=== PATIENT | male | born 2005 | race Caucasian/White ===

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

== ENCOUNTER 2025-02-15 14:24 | Emergency (ER) | payer SELFPAY ==
[2025-02-15 14:43] VITALS: BP 120/78; PULSE 71; TEMP 36.7; O2SAT 99
--- NOTE | 2025-02-15 14:52 | W.ED.EXTPRO ---
HPI - Extremity Problem General: Chief complaint: Extremity Problem,Nontraumatic Stated complaint: knee pain Time Seen by Provider: 02/15/25 14:31 Source: patient Mode of arrival: ambulatory Limitations: no limitations History of Present Illness: Patient is a 19-year-old male who presents to ED today with complaint of bilateral anterior knee pain starting several days ago. Patient starting a new exercise regimen and is walking 3 miles and running 2 miles daily. This is normally being completed on pavement. Patient is currently wearing [employer] shoes which he states he is running in. They admittedly do not have very good support. MD Complaint: joint pain Onset (ago): day(s) Pain Consistency: constant Location: left, right and knee Radiation: none Relieving factors: immobilization Exacerbating factors: weight bearing, walking and other (running) Associated symptoms: Reports no associated symptoms Related Data Previous Rx's ?Medication ?Instructions ?Recorded ProAir HFA 90 mcg/actuation See Rx Instructions .Route 04/10/22 aerosol inhaler (albuterol sulfate) .COMPLEX #9 grams codeine 10 mg-guaifenesin 100 mg/5 7.5 ml PO Q6H PRN cough #118 mL 10/14/23 mL oral liquid ketorolac 10 mg tablet 10 mg PO TID PRN pain #10 tabs 10/14/23 Allergies Allergy/AdvReac Type Severity Reaction Status Date / Time No Known Allergies Allergy Verified 02/15/25 14:47 Review of Systems Musc: Reports: joint pain; Denies: extremity pain, extremity swelling, joint swelling, joint redness, joint warmth, joint stiffness, limited range of motion or muscle weakness Neuro: Denies: numbness in extremities, sensory changes or difficulty walking PFS ED PFSH: Social History Smoking and tobacco/nicotine status: never used tobacco/nicotine Physical Exam Const: COMMON NORMALS: no acute distress, patient oriented x3, no limitations, alert and well nourished GENERAL APPEARANCE: cooperative NUTRITIONAL APPEARANCE: obese Extremity: RIGHT LOWER EXTREMITY: Yes knee joint LEFT LOWER EXTREMITY: Yes knee joint OTHER: mild anterior bilateral knee pain with palpation; no edema, no redness Neuro: COMMON NORMALS: patient oriented x3, moves all extremities, no focal motor deficits, no sensory deficits noted and gait normal SENSORIUM/ORIENTATION: Yes alert Course Vital Signs: Vital signs: Vital Signs Temperature 98.1 F 02/15/25 14:43 Pulse Rate 71 02/15/25 14:43 Blood Pressure 120/78 02/15/25 14:43 Pulse Oximetry 99 02/15/25 14:43 Oxygen Delivery Me thod Room Air 02/15/25 14:43 MDM - Extremity (Nontraumatic) Medical Decision Making Given recent history this is probably due to repeated concrete impaction with poor supportive shoe wear. DDx Pippa-Schlatter, patellofemoral syndrome, morrell splints, etc. Discussed better shoe wear-he does have higher arches so discussed [employer] make good supportive running shoes. He could also try insoles if he cannot afford a new pair. If he is really motivated he can find a running store and do a foot/gait analysis to see if he supinates/pronates when he runs and they can make footwear recommendations based on this. Discussed less impact by walking/running on softer surfaces like grass or rubber track. Ice/elevation/NSAIDS. No radiology studies performed this visit Discharge Plan Discharge Patient Disposition: Home Clinical Impression: Acute bilateral knee pain Condition: Stable Prescriptions: No Action albuterol sulfate [ProAir HFA] 90 mcg/actuation HFA aerosol inhaler See Rx Instructions .ROUTE .COMPLEX Qty: 9 2RF Dose Instruction: INHALE 2 PUFFS BY MOUTH EVERY 6 HOURS NEEDED FOR SHORTNESS OF BREATH OR FOR WHEEZING Rx Instructions: INHALE 2 PUFFS BY MOUTH EVERY 6 HOURS NEEDED FOR SHORTNESS OF BREATH OR FOR WHEEZING ketorolac 10 mg tablet 10 mg PO TID PRN (Reason: pain) Qty: 10 0RF codeine-guaifenesin 10-100 mg/5 mL liquid 7.5 ml PO Q6H PRN (Reason: cough) Qty: 118 0RF Discharge Orders: Discharge ED (Routine); Ordered 02/15/25 Ordered By: Emily Martinez Referrals: Maru Wright NP [Primary Care Provider] - Activity Restrictions/Additional Instructions: As we discussed, you need to look into better footwear for running. We discussed running on softer surfaces over the next several weeks including grass and avoiding pavement. You need to ice the knees for 20 to 30 minutes 3 times daily and begin taking an anti-inflammatory such as ibuprofen every 6-8 hours. Print Language: Central African Coding Level of Care Code ED Field Technical Assistant for Johnathan Gonzales
== END 2025-02-15 15:12 | disposition home or self-care (01) ==
PROVIDERS: Emergency Provider Physician Assistant; PCP Nurse Practitioner
DX: M25.561 Pain in right knee (principal); M25.562 Pain in left knee
CPT/HCPCS: 99282

== ENCOUNTER 2025-05-12 18:40 | Emergency (ER) | payer SELFPAY ==
[2025-05-12 18:44] VITALS: BP 142/88; PULSE 56; RESP 16; TEMP 36.4; O2SAT 100
--- NOTE | 2025-05-12 19:34 | XRR_ITS ---
PROCEDURE INFORMATION: Exam: XR Right Elbow Exam date and time: 05/12/2025 7:37 PM Age: 19 years old Clinical indication: Pain; Elbow; Right; Additional info: Fall, decreased rom TECHNIQUE: Imaging protocol: Radiologic exam of the right elbow. Views: 3 or more views. COMPARISON: No relevant prior studies available. FINDINGS: Bones/joints: Chronic appearing architectural distortion of the right radial head and capitellum and proximal ulna and trochlea. Well corticated bony fragment projecting just anterior to the distal humerus on the lateral view. Irregular linear lucency projecting through the articular aspect of the proximal ulna on the lateral view which may represent a nondisplaced fracture. Soft tissues: Normal. XR/XR elbow RT min 3V* [id number] IMPRESSION: 1. Irregular linear lucency projecting through the articular aspect of the proximal ulna on the lateral view which may represent a nondisplaced fracture. 2. Chronic appearing architectural distortion of the right radial head and capitellum and proximal ulna and trochlea.
[2025-05-12] MEDS: HYDROcodone-acetaminophen 5-325 mg Tablet 1 TAB PO ×2 (20:10→21:34)
[2025-05-12] MEDS: ondansetron hcl ODT 4 mg Tab PO (20:11)
[2025-05-12] MEDS: ketorolac 60 mg/2 mL INJ IM (20:11)
--- NOTE | 2025-05-12 21:20 | W.ED.EXTPRO ---
HPI - Extremity Problem General: Chief complaint: Extremity Injury, Upper Stated complaint: Right arm injury Time Seen by Provider: 05/12/25 19:12 Source: patient Mode of arrival: ambulatory Limitations: no limitations History of Present Illness: 19yo male presents with mother for evaluation of right elbow pain following a fall that occurred when his mother's dog ran into him. Patient reports that he was on the second step when the dog ran out and knocked him over, causing him to fall to the ground. Patient states that he did put his right arm behind him in order to catch himself, and felt significant pain in the elbow. He denies any other injury or concern at this time. Patient is right-hand dominant. Patient denies any other concerns at this time. Associated symptoms: Deny chest pain or fever(s) Related Data Previous Rx's ?Medication ?Instructions ?Recorded ProAir HFA 90 mcg/actuation See Rx Instructions .Route 04/10/22 aerosol inhaler (albuterol sulfate) .COMPLEX #9 grams hydrocodone 5 mg-acetaminophen 325 1 tab PO Q6H PRN pain #20 tabs 05/12/25 mg tablet ondansetron 4 mg disintegrating 4 mg PO Q8H PRN nausea and 05/12/25 tablet vomiting #20 tabs Allergies Allergy/AdvReac Type Severity Reaction Status Date / Time No Known Allergies Allergy Verified 05/12/25 18:47 Review of Systems Const: Denies: fever(s), chills or body aches Card: Denies: chest pain Resp: Denies: dyspnea GI: Denies: vomiting Musc: Reports: extremity pain (Right elbow) and extremity swelling (Right elbow) [facility] ED PFSH: Social History Smoking and tobacco/nicotine status: never used tobacco/nicotine Physical Exam Const: COMMON NORMALS: no acute distress, patient oriented x3 and alert GENERAL APPEARANCE: cooperative ORIENTATION/CONSCIOUSNESS: Yes awake OTHER: Patient is ambulatory [facility] with no difficulty. He is interactive with exam appropriately. He is in no acute distress. Mother is at bedside HENMT: COMMON NORMALS: normocephalic and atraumatic HEAD & SCALP: normocephalic and atraumatic Neck/C-Spine: COMMON NORMALS: full ROM Chest: CHEST: Yes Symmetrical chest wall rise Resp: COMMON NORMALS: normal respiratory effort EFFORT & INSPECTION: Yes able to speak in complete sentences Extremity: RIGHT UPPER EXTREMITY: Yes elbow joint (Swelling noted) Right elbow: Yes inspection and Yes palpation (TTP to olecranon, medial and lateral epicondyles) OTHER: No tenderness to the right shoulder or right wrist. Full range of motion of the right digits Neuro: COMMON NORMALS: patient oriented x3 SENSORIUM/ORIENTATION: Yes alert Psych: COMMON NORMALS: cooperative Course Vital Signs: Vital signs: Vital Signs Temperature 97.5 F L 05/12/25 18:44 Pulse Rate 67 05/12/25 21:54 Respiratory Rate 16 05/12/25 18:44 Blood Pressure 98/67 05/12/25 21:54 Pulse Oximetry 97 05/12/25 21:54 MDM - Extremity (Nontraumatic) Medical Decision Making 19yo male presents with mother for evaluation of right elbow pain following a fall that occurred when his mother's dog ran into him. Patient reports that he was on the second step when the dog ran out and knocked him over, causing him to fall to the ground. Patient states that he did put his right arm behind him in order to catch himself, and felt significant pain in the elbow. He denies any other injury or concern at this time. Patient is right-hand dominant. Patient denies any other concerns at this time. Patient is nontoxic in appearance. Vital signs are stable. Fracture noted at the proximal ulna, sail sign noted. Radiology review is pending. Patient was placed in a posterior long-arm splint with a sling while awaiting radiology review. Radiology does note the irregular linear lucency which may represent a nondisplaced fracture. A referral was placed to orthopedics for follow-up. Short course of pain medication was sent to patient's pharmacy, sedation precautions provided. Recommend he follow-up with orthopedics as soon as possible for definitive care. Return precautions provided. Patient states understanding and has no further questions or concerns at this time. Medical Records I reviewed the patient's medical records. Lab Data Radiology Impressions Elbow X-Ray 05/12/25 19:34 IMPRESSION: 1. Irregular linear lucency projecting through the articular aspect of the proximal ulna on the lateral view which may represent a nondisplaced fracture. 2. Chronic appearing architectural distortion of the right radial head and capitellum and proximal ulna and trochlea. All radiology interpretation(s) finalized by discharge Discharge Plan Discharge Patient Disposition: Home Clinical Impression: Elbow fracture, right Qualifiers: Encounter type: initial encounter Fracture type: closed Qualified Code(s): S42.401A - Unspecified fracture of lower end of right humerus, initial encounter for closed fracture Condition: Stable Prescriptions: New hydrocodone-acetaminophen 5-325 mg tablet 1 tab PO Q6H PRN (Reason: pain) Qty: 20 0RF ondansetron 4 mg tablet,disintegrating 4 mg PO Q8H PRN (Reason: nausea and vomiting) Qty: 20 0RF Discontinued ketorolac 10 mg tablet 10 mg PO TID PRN (Reason: pain) Qty: 10 0RF codeine-guaifenesin 10-100 mg/5 mL liquid 7.5 ml PO Q6H PRN (Reason: cough) Qty: 118 0RF No Action albuterol sulfate [ProAir HFA] 90 mcg/actuation HFA aerosol inhaler See Rx Instructions .ROUTE .COMPLEX Qty: 9 2RF Dose Instruction: INHALE 2 PUFFS BY MOUTH EVERY 6 HOURS NEEDED FOR SHORTNESS OF BREATH OR FOR WHEEZING Rx Instructions: INHALE 2 PUFFS BY MOUTH EVERY 6 HOURS NEEDED FOR SHORTNESS OF BREATH OR FOR WHEEZING Discharge Orders: Discharge ED (Routine); Ordered 05/12/25 Ordered By: Lonnie Looney Referrals: Maru Wright NP [Primary Care Provider, Nurse Practitioner] Patient Instructions: Opioid Safety, Pain Management Activity Restrictions/Additional Instructions: Keep the splint in place until you have been evaluated by orthopedics A referral has been placed to orthopedics for follow-up A short course of pain medication has been prescribed. Please do not drive or operate heavy machinery while taking pain medication. Nausea medication has also been prescribed as pain medications typically will cause nausea You may apply a cool compress to the area to help with pain and swelling as well No activity with the right arm until you have been cleared Follow-up with orthopedics as soon as possible Return to the emergency department if any further injury, rapid worsening symptoms, and as needed Stand Alone Forms: Work/School Release Print Language: Portuguese Coding Level of Care Code ED Supervisor Home Energy Consultant for Johnathan Gonzales
[2025-05-12 21:54] VITALS: BP 98/67; PULSE 67; O2SAT 97
--- NOTE | 2025-05-13 07:45 | DCPLANNER ---
messaged ortho for er f/u
--- NOTE | 2025-05-14 15:21 | DCPLANNER ---
received leave of absence paperwork for patient and emailed it to ortho. let patient know that er does not fill out the leave paperwork and it may need to go to primary care but i would send it to ortho in case they could fill it out
== END 2025-05-12 21:55 | disposition home or self-care (01) ==
PROVIDERS: Emergency Provider Nurse Practitioner; PCP Nurse Practitioner
DX: S42.401A Unspecified fracture of lower end of right humerus, initial encounter for closed fracture (principal); W10.9XXA Fall (on) (from) unspecified stairs and steps, initial encounter
CPT/HCPCS: 29105; 73080; 96372; 99284; J1885; J9999; Q0162

== ENCOUNTER → 2025-05-17 09:11 | Outpatient (BNVA) | payer SELFPAY | PROVIDERS: PCP Nurse Practitioner; Visit Provider Specialist | DX: S42.401A Unspecified fracture of lower end of right humerus, initial encounter for closed fracture (principal); X58.XXXA Exposure to other specified factors, initial encounter; Z46.89 Encounter for fitting and adjustment of other specified devices | CPT/HCPCS: 73080 ==

== ENCOUNTER 2025-05-17 11:31 | Outpatient (CLI) | payer SELFPAY | END 2025-05-17 11:32 | disposition home or self-care (01) | LOC: SPT 11:31 | PROVIDERS: PCP Nurse Practitioner; Visit Provider Specialist | DX: Z46.89 Encounter for fitting and adjustment of other specified devices (principal); S42.401A Unspecified fracture of lower end of right humerus, initial encounter for closed fracture; X58.XXXA Exposure to other specified factors, initial encounter | CPT/HCPCS: L3761 ==

== ENCOUNTER 2025-05-20 15:55 | Outpatient (CLI) | payer SELFPAY ==
--- NOTE | 2025-05-20 16:30 | CTR_ITS ---
PROCEDURE INFORMATION: Exam: CT Right Upper Extremity Without Contrast, Elbow Exam date and time: 05/20/2025 4:16 PM Age: 19 years old Clinical indication: Pain; Elbow; Right; Additional info: Fracture TECHNIQUE: Imaging protocol: Computed tomography of the right upper extremity without contrast. Exam focused on the elbow. Radiation optimization: All CT scans at this facility use at least one of these dose optimization techniques: automated exposure control; mA and/or kV adjustment per patient size (includes targeted exams where dose is matched to clinical indication); or iterative reconstruction. COMPARISON: CR (ELBOW AP, ELBOW, ELBOW AP) 05/17/2025 9:26 AM RADIATION DOSE METRICS: Total DLP (mGy-cm): 136.66 FINDINGS: Bones/joints: Dysmorphic appearance to the radial head possibly from old healed fracture. 11 mm bony loose body in the coronoid fossa. Fracture along the base of the coronoid process without significant displacement. Marginal osteophyte formation lateral compartment. Significant spurring in the olecranon and coronoid fossa. Soft tissues: Normal. CT/CT elbow RT wo con* [id number] IMPRESSION: 1. Fracture along the base of the coronoid process without significant displacement. 2. Dysmorphic appearance to the radial head possibly from old healed fracture. 3. Prominent degenerative spurring.
== END 2025-05-20 15:56 | disposition home or self-care (01) ==
LOC: RAD 15:57
PROVIDERS: PCP Nurse Practitioner; Visit Provider Specialist
DX: S42.401A Unspecified fracture of lower end of right humerus, initial encounter for closed fracture (principal); X58.XXXA Exposure to other specified factors, initial encounter
CPT/HCPCS: 73200

== ENCOUNTER → 2025-05-26 11:03 | Outpatient (BNVA) | payer SELFPAY | PROVIDERS: PCP Nurse Practitioner; Visit Provider Specialist | DX: S52.044A Nondisplaced fracture of coronoid process of right ulna, initial encounter for closed fracture (principal); X58.XXXA Exposure to other specified factors, initial encounter; M21.921 Unspecified acquired deformity of right upper arm | CPT/HCPCS: 25530; 73080 ==

== ENCOUNTER → 2025-06-16 13:15 | Outpatient (BNVA) | payer MEDICAID, SELFPAY | PROVIDERS: PCP Nurse Practitioner; Visit Provider Specialist | DX: M21.921 Unspecified acquired deformity of right upper arm (principal) | CPT/HCPCS: 73080 ==

== ENCOUNTER 2025-10-19 00:12 | Emergency (ER) | payer MEDICAID, SELFPAY ==
[2025-10-19 00:16] VITALS: BP 119/64; PULSE 69; RESP 18; TEMP 36.6; O2SAT 100; BMI 33.9
[2025-10-19 02:06] VITALS: BP 110/73; PULSE 77; O2SAT 100
--- NOTE | 2025-10-19 02:21 | W.ED.ALLEREA ---
HPI - Allergic Reaction General: Chief complaint: Allergic Reaction Stated complaint: Possible Allergic Reaction Time Seen by Provider: 10/19/25 02:05 History of Present Illness: HPI narrative: Patient is a male with no prior medical history who presents with a diffuse, pruritic rash that began approximately one hour after consuming a homemade [place] dish containing a new seasoning in the afternoon a day and a half ago. The rash worsened overnight, and he awoke this morning with extensive involvement, particularly severe on the chest and back, described as appearing dark red and blotchy. He experienced minor lip swelling that improved after two doses of Benadryl, but the rash continued to spread. He denies any prior similar reactions, and reports no severe abdominal pain, respiratory distress, throat swelling, or wheezing, syncnope or chest pain. Related Data Previous Rx's ?Medication ?Instructions ?Recorded ProAir HFA 90 mcg/actuation See Rx Instructions .Route 04/10/22 aerosol inhaler (albuterol sulfate) .COMPLEX #9 grams ondansetron 4 mg disintegrating 4 mg PO Q8H PRN nausea and 05/12/25 tablet vomiting #20 tabs hinged elbow brace, right #1 ea 05/17/25 epinephrine 0.3 mg/0.3 mL 0.3 mg (0.3 mL) SUBCUT Q10M PRN 10/19/25 injection syringe anaphylaxis #1 ea hydroxyzine HCl 25 mg tablet 25 mg PO BID PRN rash, itching #10 10/19/25 tabs prednisone 50 mg tablet 50 mg PO DAILY #5 tabs 10/19/25 Allergies Allergy/AdvReac Type Severity Reaction Status Date / Time No Known Allergies Allergy Verified 06/16/25 08:22 Review of Systems General: Reports: 10 or more systems reviewed and unremarkable except in HPI and below Skin/Breast: Reports: rash, pruritus and erythema PFSH ED PFSH: Social History Smoking and tobacco/nicotine status: current every day tobacco/nicotine user Physical Exam Narrative: EXAM NARRATIVE: Well-appearing, no acute distress, afebrile, vital signs stable on arrival. Patient with generalized irregular erythema with no raised lesions to most of trunk and back, bilateral upper extremities and to face. No mucosal involvement, no lip, throat swelling, breathing comfortably on room air, saturating well, no upper airway obstruction, abdomen soft, nontender, nondistended. Course Vital Signs: Vital signs: Vital Signs Temperature 97.8 F 10/19/25 00:16 Pulse Rate 91 10/19/25 02:54 Respiratory Rate 18 10/19/25 00:16 Blood Pressure 105/65 10/19/25 02:54 Pulse Oximetry 100 10/19/25 02:54 Oxygen Delivery Me thod Room Air 10/19/25 02:06 MDM - Allergic Reaction Medical Decision Making -ddx: Localized versus systemic allergic reaction, anaphylaxis, dermatitis, cellulitis - Patient with possible allergic exposure about a day and a half ago, has had diffuse skin involvement, questionable lip swelling at 1 point but never any throat or mouth swelling, never any shortness of breath or concerns for respiratory compromise, no seeming second system involved in due to being over a day and a half out from original exposure, low concern for anaphylaxis. Patient was most concerned for symptoms at this time and so goal was just to treat this, he was given an IM dose of steroids, given Atarax and Pepcid and discharged on a 5-day course of prednisone and prescription for an EpiPen as needed, strict return precautions given, work note provided, discharged in stable condition with mother at bedside. No radiology studies performed this visit Discharge Plan Discharge Patient Disposition: Home Clinical Impression: Allergic reaction Condition: Stable Prescriptions: New prednisone 50 mg tablet 50 mg PO DAILY Qty: 5 0RF hydroxyzine HCl 25 mg tablet 25 mg PO BID PRN (Reason: rash, itching) Qty: 10 0RF epinephrine 0.3 mg/0.3 mL syringe 0.3 mg SUBCUT Q10M PRN (Reason: anaphylaxis) Qty: 1 0RF Rx Instructions: for 2 doses No Action (DME) hinged elbow brace, right See Rx Instructions .Route .MEDSUPPLY Qty: 1 0RF Rx Instructions: As directed albuterol sulfate [ProAir HFA] 90 mcg/actuation HFA aerosol inhaler See Rx Instructions .ROUTE .COMPLEX Qty: 9 2RF Dose Instruction: INHALE 2 PUFFS BY MOUTH EVERY 6 HOURS NEEDED FOR SHORTNESS OF BREATH OR FOR WHEEZING Rx Instructions: INHALE 2 PUFFS BY MOUTH EVERY 6 HOURS NEEDED FOR SHORTNESS OF BREATH OR FOR WHEEZING ondansetron 4 mg tablet,disintegrating 4 mg PO Q8H PRN (Reason: nausea and vomiting) Qty: 20 0RF Discharge Orders: Discharge ED (Routine); Ordered 10/19/25 Ordered By: Luis M Marie Referrals: Maru Wright NP [Primary Care Provider, Nurse Practitioner] Discharge Diet: Usual diet Discharge Activity: Resume usual activity Patient Instructions: Food Allergy (ED), Allergies (ED), Blood Transfusion Reactions (ED), Adverse Drug Reaction (ED), Opioid Safety, Pain Management, Patient Portal & Felix Instructions Activity Restrictions/Additional Instructions: You were seen after your allergic reaction, because of the length of time this was only a moderate degree reaction in which it is safe for you to go home. To help with the rash and itching, you are given a first dose of intramuscular steroid, to continue to help, use the prednisone 50 mg daily, if the rash or itchiness is fully healed you can stop taking it before this. In addition, use the hydroxyzine every 12 hours as needed for rash and itching, you can use Benadryl in between this twice daily as well if needed for additional relief, but these medications can be sedating. Use the epi pen in the future if you have an allergic reaction that develop throat or lip swelling, difficulties breathing, severe wheezing, episodes of passing out, and if you have these you need to return to the emergency room. 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
[2025-10-19 02:54] VITALS: BP 105/65; PULSE 91; O2SAT 100
[2025-10-19] MEDS: methylPREDNISolone (DEPO) 80 MG/ML INJ 1 mL IM (03:00)
== END 2025-10-19 03:13 | disposition home or self-care (01) ==
PROVIDERS: Emergency Provider Student in an Organized Health Care Education/Training Program; PCP Nurse Practitioner
DX: T78.40XA Allergy, unspecified, initial encounter (principal); Z72.0 Tobacco use; X58.XXXA Exposure to other specified factors, initial encounter
CPT/HCPCS: 96372; 99284; J1010; J9999